=== PATIENT | female | born 1995 | race African-American/Black ===

== ENCOUNTER 2019-02-22 22:37 | Emergency (ER) | payer OTHER ==
[~2019-02-22] VITALS: Ht 167.6 cm; Wt 78.0 kg
[2019-02-22 22:45] VITALS: BP 136/98
--- NOTE | 2019-02-22 22:52 | NUR ---
PT AMBULATED TO LOBBY WITH VSS.
--- NOTE | 2019-02-23 00:28 | NUR ---
pt ambulated to bed 11
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
[2019-02-23] MEDS ORDERED: KETOROLAC 60 MG/2 ML VIAL IM ONE (01:20)
--- NOTE | 2019-02-23 01:54 | NUR ---
PT IS RESTING IN BED. NO SIGNS OF DISTRESS. PT STATES SHE FEELS BETTER, PAIN HAS DECREASED. MOTHER AT BEDSIDE. WILL CONTINUE TO MONITOR.
[2019-02-23 03:10] VITALS: BP 136/98
--- NOTE | 2019-02-23 03:10 | NUR ---
PT DISCHARGED WITH PAPERWORK. RX MOTRIN FOR PAIN. EDUCATED PT REGARDING MEDICATIONS AND S/E. EDUCATED PT REGARDING D/C DIAGNOSIS. PT VERBALIZED UNDERSTANDING OF TEACHING. TOLD PT TO FOLLOW UP WITH PCP AND WHEN TO RETURN TO ED. PT VSS. ALL QUESTIONS ANSWERED.
== END 2019-02-23 03:10 | disposition home or self-care (01) ==
LOC: MED 22:37
DX: S60.221A Contusion of right hand, initial encounter (principal); W22.8XXA Striking against or struck by other objects, initial encounter; Y93.89 Activity, other specified; Y92.89 Other specified places as the place of occurrence of the external cause; Y99.8 Other external cause status
CPT/HCPCS: 73130; 96372; 99283; J1885